=== PATIENT | female | born 1985 | race Caucasian/White ===

== ENCOUNTER 2019-04-03 22:55 | Emergency (ER) | payer OTHER ==
[2019-04-04] MEDS: IBUPROFEN 600 MG TAB PO (00:20)
== END 2019-04-04 02:41 | disposition home or self-care (01) ==
LOC: FTE 22:55
DX: S69.92XA Unspecified injury of left wrist, hand and finger(s), initial encounter (principal); W20.8XXA Other cause of strike by thrown, projected or falling object, initial encounter; Y92.9 Unspecified place or not applicable
CPT/HCPCS: 29125; 73110-LT; 73130-LT; 99283-25